=== PATIENT | female | born 1970 | race Caucasian/White ===

== ENCOUNTER → 2018-07-08 12:15 | Outpatient (CLI) | payer BC, SELFPAY ==
--- NOTE | 2018-07-08 | DI.US.S_ITS ---
PROCEDURE: US PELVIC COMPLETE INDICATIONS: DYSFUNCTIONAL UTERINE BLEEDING OVARIAN CYST TECHNIQUE: Real-time scanning was performed of the pelvic organs, with image documentation. Additional endovaginal scanning was necessary due to incomplete visualization of the adnexal and endometrial structures by transabdominal scanning. COMPARISON: None. FINDINGS: Transabdominal scanning: Limited scanning through the kidneys shows no hydronephrosis. No pathologic free abdominal or pelvic fluid. Endovaginal scanning: Uterus: Uterus is normal in size at 8.6 x 4.9 x 6.9 cm. The endometrium is not well-visualized secondary to intrauterine device which is in expected position. Ovaries: Simple cyst involves the left ovary 18 mm otherwise the ovaries are normal bilaterally measuring 3.0 x 1.3 x 1.9 cm on the right and 2.4 x 2.8 x 2.9 cm on the left. IMPRESSION: 1. No source for pelvic pain identified. 2. Intrauterine device in expected position. 3. Simple 18 mm left ovarian cyst. Dictated by: Andrzej Soto A Interpreted: Diana Castillo MD on 07/08/2018 at 14:14 Approved by: Diana Castillo MD, PhD on 07/08/2018 at 15:08
== END ==
PROVIDERS: PCP Family Medicine; Visit Provider Family Medicine
DX: N93.8 Other specified abnormal uterine and vaginal bleeding (principal); N83.292 Other ovarian cyst, left side; R10.2 Pelvic and perineal pain; Z30.431 Encounter for routine checking of intrauterine contraceptive device
CPT/HCPCS: 76830; 76856

== ENCOUNTER → 2022-07-24 18:50 | Outpatient (ROUT) | payer BC, SELFPAY ==
[2022-07-24 20:58] LABS: COVID19 -Nasal RAPID Negative (Negative)
== END ==
PROVIDERS: PCP Family Medicine; Visit Provider Family Medicine
DX: Z20.822 Contact with and (suspected) exposure to COVID-19 (principal)
CPT/HCPCS: 87635; C9803

== ENCOUNTER → 2022-08-28 16:30 | Outpatient (CLI) | payer BC, SELFPAY | PROVIDERS: PCP Family Medicine; Referring Provider Family Medicine; Visit Provider Family Medicine | DX: M25.561 Pain in right knee (principal); Z53.20 Procedure and treatment not carried out because of patient's decision for unspecified reasons ==

== ENCOUNTER → 2022-09-04 14:18 | Outpatient (CLI) | payer BC, SELFPAY ==
--- NOTE | 2022-09-04 | DI.MRI.S_ITS ---
PROCEDURE: MR KNEE RT WO CON INDICATIONS: Pain in right knee TECHNIQUE: Noncontrast sagittal PD fast spin echo and T2 fast spin echo with fat saturation, sagittal 3-D FLASH with fat saturation; coronal T1 spin echo and PD fast spin echo with fat saturation, and axial PD fast spin echo with fat saturation through the knee. COMPARISON: [facility], CR, XR KNEE ARTHRITIC SERIES RT, 05/20/2022, 10:44. FINDINGS: Image quality: Excellent Menisci: Medial: Oblique tear of the posterior horn of the medial meniscus involving the meniscal capsular junction. Partial radial component near the root. The meniscus is extruded. Lateral: Intact. Meniscopopliteal fascicles maintained. Cruciate ligaments: ACL graft. The graft fibers appear somewhat diminutive, but overall intact. PCL is intact. Medial structures: MCL: Mild periligamentous edema Pes anserine tendons: Intact Semimembranosus: Intact Lateral structures: LCL: Intact Biceps femoris: Intact IT band: Thickening distally may be from prior injury. Popliteus tendon: Mild edema surrounding the tendon, possibly tenosynovitis Anterior structures: Extensor mechanism: Intact Fat pads: No pathologic edema Medial retinaculum: Intact. Trochlea: Unremarkable morphology. Bone and joint: Bones: No fracture, dislocation, or suspicious edema Cartilage: Moderate overall arthrosis and chondromalacia, with tricompartmental osteophyte formation. Cartilage loss with multifocal full-thickness components of the patellofemoral region, with small underlying areas of marrow edema. The lateral compartment is relatively spared. Joint space: Moderate joint effusion with suspected debris, synovitis. Huang's cyst: None Soft tissues: No significant vascular or other soft tissue pathology. IMPRESSION: Complex tear of the medial meniscus with at least a partial radial component at the root. The meniscus is extruded. ACL graft appears more diminutive than expected. However, there are intact fibers without significant edema. Suspected MCL sprain. Moderate overall degenerative changes, worst at the patellofemoral compartment. Moderate joint effusion with cyst suspected synovitis and debris. Dictated by: Dwayne Larios M.D. on 09/04/2022 at 15:57 Approved by: Dwayne Larios M.D. on 09/04/2022 at 16:06
== END ==
PROVIDERS: PCP Family Medicine; Referring Provider Family Medicine; Visit Provider Family Medicine
DX: S83.231A Complex tear of medial meniscus, current injury, right knee, initial encounter (principal); M25.561 Pain in right knee; M25.461 Effusion, right knee
CPT/HCPCS: 73721

== ENCOUNTER → 2023-09-23 15:12 | Outpatient (CLI) | payer BC, SELFPAY ==
--- NOTE | 2023-09-23 15:14 | DI.MRI.S_ITS ---
PROCEDURE: MR HEAD/BRAIN WO/W CON INDICATIONS: Cognitive changes TECHNIQUE: Noncontrast axial T1 spin echo, axial T2 fast spin echo, sagittal and axial FLAIR, coronal T2 fast spin echo, axial gradient echo, axial diffusion and ADC through the brain. After the administration of contrast, axial and coronal and sagittal 3D VIBE or T1 spin echo with fat saturation through the brain. COMPARISON: [facility], , CT HEAD W/O CONTRAST, 10/19/2004, 18:14. FINDINGS: Image quality: Excellent. CSF Spaces: Basal cisterns are patent. No extra-axial fluid collections. Ventricles are normal in size and shape. Brain: No midline shift. No intracranial bleeds or masses. No abnormal intracranial enhancement. The brainstem appears normal. Diffusion-weighted images demonstrate no acute ischemic insults. Early chronic small vessel ischemic change can be seen. Brain parenchymal volume loss is seen. There is a nonenhancing cystic focus seen involving the right basal ganglia. Normal intravascular flow voids are present. Skull and face: Calvarial marrow is normal in signal. Orbits appear normal. Sinuses: Sinuses and mastoids appear clear. IMPRESSION: Premature brain parenchymal volume loss and chronic small vessel ischemic change. No masses or abnormal enhancement can be seen. No findings of acute or subacute infarction can be seen. Dictated by: Panda Luna M.D. on 09/23/2023 at 16:10 Approved by: Panda Luna M.D. on 09/23/2023 at 16:12
== END ==
PROVIDERS: PCP Family Medicine; Referring Provider Family Medicine; Visit Provider Family Medicine
DX: R41.89 Other symptoms and signs involving cognitive functions and awareness (principal)
CPT/HCPCS: 70553

== ENCOUNTER → 2024-06-15 10:33 | Outpatient (CLI) | payer OTHER, SELFPAY ==
[2024-06-15 11:13] LABS: Estimated Glomerular Filt Rate > 60 mL/min (>60)
--- NOTE | 2024-06-15 12:30 | DI.CT.S_ITS ---
PROCEDURE: CT ANGIO HEAD AND NECK INDICATIONS: HTN,COGNITIVE CHANGES TECHNIQUE: After the administration of intravenous contrast, 1 mm thick sections acquired from the aortic arch through the [place] of [place]. 3-dimensional yifppxb-yyqqaifxi-tdtcjfkvse (MIP) and/or volume rendering reformats were acquired of the central intracranial vasculature and neck separately. For radiation dose reduction, the following was used: automated exposure control, adjustment of mA and/or kV according to patient size. COMPARISON: [facility], MR, MR HEAD/BRAIN WO/W CON, 09/23/2023, 15:22. FINDINGS: Image quality: Diagnostic. BRAIN: CSF spaces: Ventricles are normal in size and shape. Basal cisterns are patent. No extra-axial fluid collections. Brain: No significant abnormality of the brain can be seen. Skull and face: Calvarium and facial bones appear intact, without suspicious lesions. Orbits appear normal. Sinuses: Sinuses and mastoids are clear. HEAD CT ANGIOGRAPHY: Anterior circulation: Intracranial internal carotid arteries are normal in size and flow. The flow within the paired anterior cerebral arteries is normal and symmetric. The flow within the middle cerebral arteries is normal and symmetric. The anterior communicating artery is seen. No aneurysms are seen. Posterior circulation: Visualized portions of the vertebral arteries demonstrate normal caliber, and join to form a normal appearing basilar artery. Flow within the posterior cerebral arteries is normal and symmetric. No aneurysms are seen. NECK CT ANGIOGRAPHY: Carotid system: The great vessels demonstrate a conventional anatomy as they arise from the aortic arch. The origins of the common carotid arteries appear patent. The common carotid arteries demonstrate normal caliber and courses. The bifurcation regions are both widely patent. The internal carotid arteries demonstrate normal calibers and courses. Posterior circulation: The origins of the vertebral arteries both appear widely patent. The more superior extracranial portions of both vertebral arteries also demonstrate normal courses and calibers. They join to form a normal appearing basilar artery. Soft tissues: 25 mm right thyroid mass.. Bones: No suspicious bony lesions. Visualized cervical spine appears normally aligned. IMPRESSION: 1. Negative evaluation of the arterial tree of the head and neck. 2. Right thyroid mass; further assessment with ultrasound is recommended. Any quantitative measurements of stenosis were performed using NASCET criteria. Dictated by: Kerri Hancock M.D. on 06/15/2024 at 15:19 Approved by: Kerri Hancock M.D. on 06/15/2024 at 15:35
== END ==
PROVIDERS: Radiology Diagnostic Radiology; PCP Family Medicine; Referring Provider Family Medicine; Visit Provider Family Medicine
DX: R41.89 Other symptoms and signs involving cognitive functions and awareness (principal); I10 Essential (primary) hypertension; E07.9 Disorder of thyroid, unspecified
CPT/HCPCS: 36415; 70496; 70498; 82565; Q9967

== ENCOUNTER 2024-06-15 12:05 | Emergency (ER) | payer OTHER, SELFPAY ==
[2024-06-15 12:10] VITALS: BP 144/83; PULSE 79; RESP 18; TEMP 36.9; O2SAT 98; BMI 35.2
--- NOTE | 2024-06-15 12:14 | ED.ALLEREA ---
HPI - Allergic Reaction General Chief complaint: Allergic Reaction Stated complaint: Allergic Reaction Time Seen by Provider: 06/15/24 12:09 Source: patient Mode of arrival: Ambulatory History of Present Illness HPI narrative: Patient is a 53-year-old female who was brought from the diagnostic imaging department for concerns of an allergic reaction to IV contrast. Patient was receiving outpatient IV contrasted study of her head and neck. She stated that afterwards she started to have some itching. It was reported that she had a flushed face. Also having a cough and a fullness sensation in her throat. No rashes. He has never had a reaction in the past to IV contrast. No interventions prior to arrival Related Data Allergies Allergy/AdvReac Type Severity Reaction Status Date / Time Iodinated Contrast Media Allergy Anaphylaxis Verified 06/15/24 12:24 Sulfa (Sulfonamide AdvReac Hives Verified 06/15/24 12:09 Antibiotics) Review of Systems Review of Systems Narrative: See HPI Patient History Social History Smoking Status: Never smoker Smoking Status: Never smoker Substance Use Type: does not use Exam Initial Vital Signs Initial Vital Signs: Vital Signs Temperature 98.4 F 06/15/24 12:10 Pulse Rate 79 06/15/24 12:10 Respiratory Rate 18 06/15/24 12:10 Blood Pressure 144/83 H 06/15/24 12:10 Pulse Oximetry 98 06/15/24 12:10 Oxygen Delivery Method Room Air 06/15/24 12:10 Const General: cooperative, comfortable and No ill appearing HENWA Head: normal to inspection and normocephalic Resp Effort & Inspection: normal respiratory effort Auscultation: clear to auscultation bilaterally Cardio Rate: regular rate Rhythm: regular rhythm GI Inspection: normal to inspection and non-distended Skin General: no rashes or lesions noted Neuro General: patient alert, patient awake and moves all extremities Course Orders Ordered: Discontinued Medications Diphenhydramine HCl (Diphenhydramine 50 Mg/Ml Vial) 25 mg IV NOW ONE Stop: 06/15/24 12:10 Last Admin: 06/15/24 12:18 Dose: 25 mg Documented By: WEI Methylprednisolone (Methylprednisolone 125 Mg/2 Ml Vial) 125 mg IV NOW ONE Stop: 06/15/24 12:10 Last Admin: 09/10/24 12:18 Dose: 125 mg Documented By: WEI Ondansetron HCl (Ondansetron 4 Mg/2 Ml Inj) 4 mg IV NOW ONE Stop: 06/15/24 12:24 Last Admin: 06/15/24 12:39 Dose: 4 mg Documented By: WEI Vital Signs Vital signs: Vital Signs - 8 hr 06/15/24 12:10 06/15/24 12:17 06/15/24 12:30 Temperature 98.4 F Pulse Rate 79 70 68 Respiratory Rate 18 Blood Pressure 144/83 H Pulse Oximetry 98 96 95 Oxygen Delivery Method Room Air 06/15/24 12:30 06/15/24 13:00 06/15/24 13:00 Temperature Pulse Rate 67 Respiratory Rate Blood Pressure 138/75 126/77 Pulse Oximetry Oxygen Delivery Method MDM - Allergic Reaction MDM Narrative Medical decision making narrative: After steroids and Benadryl here in the emergency department the patient states she would now has a complete resolution of symptoms. She does somewhat meet the criteria for anaphylaxis she does have some nausea and also flushing of the face and a fullness sensation in her throat. After period of observation her symptoms are improving. No respiratory distress. I did discuss with her that she needs to tell individuals in the future that she does have an allergic reaction to contrast dye. Will discharge patient home with return precautions. She expressed understanding and agreement. Discharge Plan Departure Patient Disposition: Home Clinical Impression: Allergic reaction Instructions: DI for General Allergic Reactions Activity Restrictions/Additional Instructions: You can continue to take Benadryl every 4-6 hours as needed if your symptoms return. If your symptoms are worsening please return to the emergency department. In the future be sure that you let any providers know that you are allergic to the contrast dye for CT scans. Referrals: Lina Linn MD [Primary Care Provider] - Stand Alone Forms: Patient Portal/API
[2024-06-15 12:17] VITALS: PULSE 70; O2SAT 96
[2024-06-15] MEDS: methylPREDNISolone 125 MG/2 ML VIAL IV (12:18)
[2024-06-15] MEDS: diphenhydrAMINE 50 MG/ML VIAL 25 MG IV (12:18)
[2024-06-15 12:30] VITALS: BP 138/75; PULSE 68; O2SAT 95
[2024-06-15] MEDS: ONDANSETRON 4 MG/2 ML INJ IV (12:39)
[2024-06-15 13:00] VITALS: BP 126/77; PULSE 67
[2024-06-15 13:30] VITALS: BP 115/73; PULSE 73; O2SAT 92
== END 2024-06-15 13:39 | disposition home or self-care (01) ==
PROVIDERS: Emergency Provider Emergency Medicine; PCP Family Medicine
DX: T78.40XA Allergy, unspecified, initial encounter (principal); R05.9 Cough, unspecified; R41.89 Other symptoms and signs involving cognitive functions and awareness; I10 Essential (primary) hypertension; E07.9 Disorder of thyroid, unspecified
CPT/HCPCS: 36415; 70496; 70498; 82565; 96374; 96375; 99283; 99284; J1200; J2405; J2919; Q9967

== ENCOUNTER → 2024-08-04 14:44 | Outpatient (CLI) | payer OTHER, SELFPAY ==
--- NOTE | 2024-08-04 14:45 | DI.US.S_ITS ---
PROCEDURE: US THYROID INDICATIONS: THYROID MASS SEEN ON CT TECHNIQUE: Real-time scanning was performed of the thyroid gland, with image documentation. COMPARISON: None. FINDINGS: Thyroid: Right lobe measures 6.8 x 3.4 x 2.5 cm. Left lobe measures 5.5 x 2.3 x 1.6 cm. Isthmus is 0.5 cm thick. Echotexture is heterogeneous. Nodule number: 1 Location: Right midpole Size: 4.2 x 2.6 x 1.9 cm. Composition: Mixed cystic and solid Echogenicity: Isoechoic Shape: wider than tall. Margins: Smooth Echogenic foci: None Total points: 2 ACR TI-RADS category: 2 Nodule number: 2 Location: Left midpole Size: 1.7 x 1.0 x 0.8 cm. Composition: Solid Echogenicity: Hypoechoic Shape: wider than tall. Margins: Smooth Echogenic foci: None Total points: 4 ACR TI-RADS category: 4 IMPRESSION: Diffusely heterogeneous thyroid, which may indicate thyroiditis. TI-RADS 4 nodule in the left midpole meets size criteria for biopsy. ACR TI-RADS definitions and recommendations: TI-RADS 1 (benign): 0 points. FNA not needed. TI-RADS 2 (not suspicious): 2 points. FNA not needed. TI-RADS 3: 3 points. * FNA if 2.5 cm or larger, follow up if 1.5 cm or larger (at 1, 3, and 5 years). TI-RADS 4: 4-6 points. * FNA if 1.5 cm or larger, follow up if 1 cm or larger (at 1, 2, 3, and 5 years). TI-RADS 5: 7 points or more. * FNA if 1 cm or larger, follow up if 0.5 cm or larger (every year for 5 years). Dictated by: Ramiro Montgomery M.D. on 08/04/2024 at 16:03 Approved by: Ramiro Montgomery M.D. on 08/04/2024 at 16:07
== END ==
PROVIDERS: PCP Family Medicine; Referring Provider Family Medicine; Visit Provider Family Medicine
DX: E04.2 Nontoxic multinodular goiter (principal)
CPT/HCPCS: 76536

== ENCOUNTER → 2024-10-13 14:37 | Outpatient (CLI) | payer OTHER, SELFPAY ==
--- NOTE | 2024-10-13 | PATH_ITS ---
Note [facility] Accession Number: [id number] TESTS RESULT FLAG UNITS REF RANGE LAB Clinician Provided Cytology Information No. of containers..01 Other (Miscellaneous) No. of containers..04 Previously Prepared Cytology Slide Source: LEFT THYROID FNA NODULE #2 DIAGNOSIS: LEFT THYROID FNA NODULE #2 BENIGN. BETHESDA CATEGORY II. SPECIMEN CONSISTS OF BENIGN FOLLICULAR CELLS, HEMOSIDERIN-LADEN MACROPHAGES, COLLOID, AND BLOOD. THIS PATTERN IS CONSISTENT WITH FOLLICULAR NODULAR DISEASE. Pathologist ICD10: 01 E04.1 Signed out by: Judy Medina DO, Pathologist NPI- [id number] Performed by: Perez Borja, Mender Hand ([facility]) Gross description: 30 CC, COLORLESS, CLEAR RECIEVED: IN CYTOLYT WITH 7 ALCOHOL FIXED AND 7 QUICK STAINED SLIDES ALSO 1 RNA VIAL WILL ON 06-25-2025.VO /VDU 10/14/2024 0602 Local FLAG LEGEND: L-Low Normal,H-High Normal,LL-Alert Low,HH-Alert High <-Panic Low,>-Panic High,A-Abnormal,AA-Critical Abnormal Performed at: 01 =Z [facility], [place] [address] Christiano Zimmerman MD, Performed at: [address] [facility], [place], [place] [id number] MD Christiano Zimmerman MD Phone: [phone]
--- NOTE | 2024-10-13 14:38 | DI.US.S_ITS ---
PROCEDURE: US FINE NEEDLE ASPIRATION INDICATIONS: THYROID NODULE TECHNIQUE: The indications, alternatives, benefits, risks, and complications of the procedure were explained to the patient. Written informed consent was obtained and placed in the chart. The area of interest was examined sonographically and a site was chosen for ultrasound guided percutaneous sampling. The skin was prepared and draped in the usual fashion, and anesthetized with 1% lidocaine infiltrated from the skin down to the lesion. Multiple passes were then performed, with contents emptied into an appropriate pathology specimen container. A bandage was applied to the area of access at completion of the study. COMPARISON: [facility], US, US THYROID, 08/04/2024, 15:12. [facility], CT, CT ANGIO HEAD AND NECK, 06/15/2024, 11:45. FINDINGS: Location(s) of lesion(s) sampled: Left mid thyroid nodule measuring 1.7 cm. [place]: 25 and 22 gauge hypodermic needles. 7 passes. Medications: 1% lidocaine for local anaesthesia. Complications: None. [employer]otech was present. IMPRESSION: Successful ultrasound-guided left mid thyroid nodule fine needle aspiration, with cytology results pending. Dictated by: Pa Polanco M.D. on 10/13/2024 at 17:05 Approved by: Pa Polanco M.D. on 10/13/2024 at 17:08
== END ==
LOC: US 14:38
PROVIDERS: PCP Family Medicine; Referring Provider Radiology Diagnostic Radiology; Visit Provider Radiology Diagnostic Radiology
DX: E04.1 Nontoxic single thyroid nodule (principal)
CPT/HCPCS: 10005

== ENCOUNTER 2024-12-26 11:08 | Emergency (ER) | payer OTHER, SELFPAY ==
[2024-12-26] VITALS (7 sets, daily range): BP systolic 126–158; BP diastolic 58–73; PULSE 66–81; RESP 16–20; TEMP 36.1; O2SAT 95–99; BMI 34.9
[2024-12-26 12:07] LABS: Add Manual Diff / Slide Review NO; Basophils Absolute Auto 100 /uL (0-100); Basophils Percent Auto 0.6 % (0-2); Eosinophils Absolute Auto 200 /uL (0-450); Eosinophils Percent Auto 2.1 % (2-4); Hematocrit 40.7 % (36-46); Hemoglobin 13.9 g/dL (12.0-16.0); Lymphocytes Absolute Auto 1400 /uL (1100-4500); Lymphocytes Percent Auto 15.8 % (25-40); Mean Corpuscular HGB Conc 34.2 % (30-36); Mean Corpuscular Hemoglobin 31.3 PG (26-34); Mean Corpuscular Volume 91.5 fL (80-100); Monocytes Absolute Auto 500 /uL (0-900); Monocytes Percent Auto 5.2 % (3-14); Neutrophils Absolute Auto 7000 /uL (1500-7000); Neutrophils Percent Auto 76.3 % (50-75); Platelet Count 371 X10^3/uL (150-400); Red Blood Cell Count 4.45 X10^6/uL (4.0-5.2); Red Cell Distribution Width 12.7 % (11.6-14.8); White Blood Cell Count 9.1 X10^3/uL (4.5-11.0)
[2024-12-26 12:18] LABS: Alanine Aminotransferase 46 IU/L (<35); Albumin 4.5 g/dL (3.5-5.0); Albumin Globulin Ratio 1.5 (1.0-2.8); Alkaline Phosphatase 57 U/L (38-126); Aspartate Aminotransferase 32 IU/L (14-36); BUN Creatinine Ratio 37.5 (6-22); Bilirubin Total 0.6 mg/dL (0.2-1.3); Blood Urea Nitrogen 21 mg/dL (7-17); Carbon Dioxide 23 mmol/L (22-32); Chloride 106 mmol/L (98-107); Estimated Glomerular Filt Rate > 60 mL/min (>60); Globulin 3.1 g/dL (1.7-4.1); Glucose 134 mg/dL (70-100); HEMOLYSIS 19 (0-50); Lipase 76 U/L (23-300); Potassium 3.8 mmol/L (3.4-5.1); Sodium 138 mmol/L (137-145); Total Protein 7.6 g/dL (6.3-8.2)
--- NOTE | 2024-12-26 13:12 | EKG_ITS ---
[place] [id number] [place] [id number] Test Date: 2024-12-26 Pat Name: Kati Frey Department: [facility] Room: Gender: Female Technical Support Coordinator: SANA : 1970 Requested By: Order Number: [id number] Reading MD: Magdiel Potter MD Measurements Intervals [place] Rate: 69 P: -5 VT: 176 QRS: 56 QRSD: 84 T: 25 QT: 410 QTc: 439 Interpretive Statements Normal sinus rhythm Electronically Signed On 12-26-2024 15:04:37 PDT by Magdiel Potter MD
[2024-12-26 17:15] LABS: Ictotest Urine Negative (Negative)
[2024-12-26 17:29] LABS: Bacteria Urine None Seen; RBC Urine None Seen (0-5/HPF); Squamous Epithelial Cell Urine 5-10 /HPF (0-5/HPF); Transitional Epi Cells Urine 0-1/HPF (0-5/HPF); Urine Volume 10mL (spun)
[2024-12-26 17:30] LABS: Culture Indicated Urine Specimen Cultured; WBC Urine 1-5/HPF (0-5/HPF)
--- NOTE | 2024-12-26 18:33 | ED.ABDPAIN ---
HPI - Abdominal Pain General Chief Complaint: Abdominal Pain Stated Complaint: Profusely sweating, abdom pain, vomiting Time Seen by Provider: 12/26/24 18:33 Source: patient, family, RN notes reviewed and old records reviewed Mode of arrival: Wheelchair Limitations: no limitations History of Present Illness HPI narrative: 54-year-old female with a history of hypertension, dyslipidemia, diabetes who presents with complaint of about 10:00 a.m. this morning having stomach cramping that started in her lower abdomen radiated up towards her ribs. She would nausea vomiting and diarrhea this lasted for about an hour during that episode she felt very weak had trouble getting around was very sweaty she states that is about 30 minutes at 10:30 a.m. this morning by 11:00 a.m. symptoms had pretty much resolved. She states her abdominal pain has not totally resolved but has significantly improved. She has not had any fevers she was aware of no upper chest pain, no shortness of breath. She was not had any additional nausea or vomiting since then. She was not had any persistent diarrhea. Did not note any black or bloody stools. Denied any dysuria urgency or frequency. Patient states home medications include diclofenac, Effexor, and hypertension, cholesterol medication and tirzepatide. States she was been on these medications for awhile. Had prior knee surgery. Reports allergy to sulfa and morphine. No tobacco, rare alcohol, no recreational drugs. Dr. Linn is her primary care physician. No other individuals with similar symptoms or other known sick contacts. Related Data Home Medications Medication Instructions Recorded Confirmed No Known Home Medications 08/24/24 08/24/24 Allergies Allergy/AdvReac Type Severity Reaction Status Date / Time Iodinated Contrast Media Allergy Anaphylaxis Verified 12/26/24 11:17 morphine AdvReac Hives Verified 12/26/24 11:17 Sulfa (Sulfonamide AdvReac Hives Verified 12/26/24 11:17 Antibiotics) Review of Systems Review of Systems ROS Unobtainable: All systems reviewed & are unremarkable except as noted in HPI and below Patient History Social History Smoking Status: Never smoker Smoking Status: Never smoker Exam Narrative Exam Narrative: GENERAL: Alert and oriented x three, no acute distress HEENT: Head normocephalic, atraumatic, EOMI, pupils reactive, face symmetric, moist mucous membranes NECK: Supple, full range of motion CARDIOVASCULAR: Regular rate and rhythm without murmurs, rubs or gallops. RESPIRATORY: Breath sounds equal bilaterally, no wheezes rales or rhonchi. ABDOMEN: Soft, nontender. Nondistended. Normoactive bowel sounds all 4 quadrants. No guarding or rebound, rigidity, no mass : No CVA tenderness EXTREMITIES: Normal range of motion, no clubbing or edema. Neurovascularly intact NEUROLOGICAL: Cranial nerves II through XII grossly intact. Moving all extremities SKIN: Warm, dry, no petechiae, no rashes or lesions. Initial Vital Signs Initial Vital Signs: Vital Signs Temperature 97.0 F L 12/26/24 11:17 Pulse Rate 77 12/26/24 11:17 Respiratory Rate 17 12/26/24 11:17 Blood Pressure 126/58 L 12/26/24 11:17 Pulse Oximetry 97 12/26/24 11:17 Oxygen Delivery Method Room Air 12/26/24 11:17 Course Orders Ordered: Discontinued Medications Ondansetron HCl (Ondansetron 4 Mg/2 Ml Inj) 4 mg IV NOW PRN PRN Reason: Nausea And Vomiting Ondansetron HCl (Ondansetron 4 Mg Odt) 4 mg PO NOW PRN PRN Reason: Nausea And Vomiting Vital Signs Vital signs: Vital Signs - 8 hr 12/26/24 11:17 12/26/24 14:23 12/26/24 15:53 Temperature 97.0 F L Pulse Rate 77 81 Respiratory Rate 17 18 Blood Pressure 126/58 L 130/71 137/72 Pulse Oximetry 97 95 Oxygen Delivery Method Room Air Room Air 12/26/24 15:53 12/26/24 16:00 12/26/24 16:00 Temperature Pulse Rate 75 75 Respiratory Rate 20 Blood Pressure 128/73 Pulse Oximetry 96 95 Oxygen Delivery Method Room Air MDM - Abdominal Pain Lab Data 12/26/24 11:52 12/26/24 11:52 Labs: Lab Results 12/26/24 12/26/24 Range/Units 11:52 16:34 WBC 9.1 (4.5-11.0) X10^3/uL RBC 4.45 (4.0-5.2) X10^6/uL Hgb 13.9 (12.0-16.0) g/dL Hct 40.7 (36-46) % MCV 91.5 (80-100) fL MCH 31.3 (26-34) PG MCHC 34.2 (30-36) % RDW 12.7 (11.6-14.8) % Plt Count 371 (150-400) X10^3/uL Neut % (Auto) 76.3 H (50-75) % Lymph % (Auto) 15.8 L (25-40) % [place] % (Auto) 5.2 (3-14) % Eos % (Auto) 2.1 (2-4) % Baso % (Auto) 0.6 (0-2) % Neut # (Auto) 7000 (7157-5025) /uL Lymph # (Auto) 1400 (8994-0165) /uL [place] # (Auto) 500 (0-900) /uL Eos # (Auto) 200 (0-450) /uL Baso # (Auto) 100 (0-100) /uL Sodium 138 (137-145) mmol/L Potassium 3.8 (3.4-5.1) mmol/L Chloride 106 (98-107) mmol/L Carbon Dioxide 23 (22-32) mmol/L BUN 21 H (7-17) mg/dL Creatinine 0.56 (0.52-1.04) mg/dL Estimated GFR > 60 (>60) mL/min BUN/Creatinine Ratio 37.5 H (6-22) Glucose 134 H (70-100) mg/dL Calcium 9.0 (8.4-10.2) mg/dL Total Bilirubin 0.6 (0.2-1.3) mg/dL AST 32 (14-36) IU/L ALT 46 H (<35) IU/L Alkaline Phosphatase 57 (38-126) U/L Total Protein 7.6 (6.3-8.2) g/dL Albumin 4.5 (3.5-5.0) g/dL Globulin 3.1 (1.7-4.1) g/dL Albumin/Globulin Ratio 1.5 (1.0-2.8) Lipase 76 (23-300) U/L Ur Bilirubin Confirm Negative (Negative) Urine RBC None seen (0-5/HPF) Urine WBC 1-5/hpf (0-5/HPF) Ur Squamous Epith Cells 5-10 /hpf H (0-5/HPF) Ur Transition Epith Cell 0-1/hpf (0-5/HPF) Urine Bacteria None seen (None) Ur Culture Indicated? Specimen cultured Vol Urine Centrifuged 10ml (spun) Point of care testing: Urine Dip Bedside Urine Glucose Negative Bedside Urine Bilirubin + 1 Bedside Urine Ketone +/- 5 Urine Specific [place] 1.015 Bedside Urine Occult Blood - Negative Bedside Urine pH 6.5 Bedside Urine Protein +/- 15 Bedside Urine Urobilinogen - Negative Bedside Urine Nitrite - Negative Bedside Urine Leukocytes + 70 Esterase ECG Data Attestation: I personally reviewed and interpreted this ECG as follows: Interpretation: EKG shows sinus rhythm rate of 69, DE 176 QRS 84 QTC of 439, no acute ST elevation depression noted. MDM Narrative Medical decision making narrative: Labs show white count 9.1 hemoglobin of 13 platelets of 371 predominance of neutrophils. Electrolytes show BUN 21 otherwise normal electrolytes glucose of 134 ALT is 46 but AST bilirubin and lipase are normal. Urine shows bilirubin ketones protein, leukocyte esterase Urine micro shows 5-10 squamous 1-5 white cells 1 transitional epithelial. EKG shows sinus rhythm rate of 69, DE 176 QRS 84 QTC of 439, no acute ST elevation depression noted. 54-year-old female with diabetes hypertension dyslipidemia who had a bout lower long episode of nausea vomiting diarrhea some abdominal discomfort got very diaphoretic. She feels improved at this time has not had any persistent symptoms since about 11:00 a.m. this morning abdominal pain has improved as well. She was nontoxic appearing appropriate labs her workup shows normal labs, urine does not show clear signs of infection EKG appears appropriate after discussion we will discharge home did discuss obtaining COVID/influenza/RSV swab but patient defers. Her abdominal exam is benign I do not feel she requires CT imaging at this time but did discuss return precautions. Discharge Plan Departure Patient Disposition: Home Clinical Impression: Nausea vomiting and diarrhea Instructions: Nausea and Vomiting-Adult Activity Restrictions/Additional Instructions: I hope you continue to feel improved. Please return if you have new or worsening symptoms, persistent fevers, persistent nausea vomiting, new or worsening abdominal back or flank pain, black or bloody stools, lightheadedness or passing out, new chest pain or shortness of breath or other new or concerning changes. Prescriptions: No Action No Known Home Medications Referrals: Linn,Lina, MD [Primary Care Provider] - Stand Alone Forms: Patient Portal/API/Survey
== END 2024-12-26 19:07 | disposition home or self-care (01) ==
PROVIDERS: Emergency Medicine; Emergency Provider Emergency Medicine; PCP Family Medicine
DX: R11.2 Nausea with vomiting, unspecified (principal); R19.7 Diarrhea, unspecified
CPT/HCPCS: 36415; 80053; 81003; 81015; 83690; 85025; 87086; 93005; 93010; 99283; 99284